=== PATIENT | female | born 1965 | race Two or more races ===

== ENCOUNTER 2018-04-17 10:15 | Emergency (ER) | payer MEDICAID ==
[~2018-04-17] VITALS: Ht 157.5 cm; Wt 87.0 kg
[2018-04-17] MEDS ORDERED: METF-414 MT (10:34)
[2018-04-17] MEDS ORDERED: IBUPROFEN 600MG TABLET PO ONE (11:00)
[2018-04-17 14:46] VITALS: BP 128/71
== END 2018-04-17 14:48 | disposition home or self-care (01) ==
LOC: ER 11:28
DX: M25.551 Pain in right hip (principal); E11.9 Type 2 diabetes mellitus without complications; Z88.0 Allergy status to penicillin; Z98.890 Other specified postprocedural states; Z79.84 Long term (current) use of oral hypoglycemic drugs; W01.0XXA Fall on same level from slipping, tripping and stumbling without subsequent striking against object, initial encounter; Y93.89 Activity, other specified; Y92.89 Other specified places as the place of occurrence of the external cause; Y99.8 Other external cause status
CPT/HCPCS: 73502; 73552; 93971; 99284